=== PATIENT | male | born 1945 | race African-American/Black ===

== ENCOUNTER 2020-03-17 11:00 | Inpatient (IN) | payer OTHER, MEDICAID ==
[~2020-03-17] VITALS: Ht 167.6 cm; Wt 64.0 kg
[~2020-03-17 11:00] MED LIST: FOLI-43 PO; GLIPIZIDE; HYDR-3927 PO; METFORMIN; MULT-1146 PO; THIA100T13 PO
[2020-03-17] MEDS ORDERED: ONDANSETRON HCL 4MG/2ML INJ IV STA (11:16)
[2020-03-17] MEDS ORDERED: SODIUM CHLORIDE 0.9% 1,000 ML IV ONE ×2 (11:16→14:45)
[2020-03-17] MEDS ORDERED: MORPHINE SULFATE 4 MG/ML CPJ (NOT FOR IM USE) IV STA (11:16)
[2020-03-17 11:42] LABS: BASOPHILS % 0.5 % (0.0-2.0); EOSINOPHILS % 2.3 % (0.0-5.0); HEMATOCRIT. 36.4 % (42.0-52.0); HEMOGLOBIN. 12.7 g/dL (14.0-18.0); LYMPHOCYTES % 22.5 % (20.0-50.0); MEAN CORPUSCULAR HEMOGLOBIN 33.9 pg (28.0-32.0); MEAN CORPUSCULAR VOLUME 97.2 fL (80.0-94.0); MEAN PLATELET VOLUME 8.7 fl (7.4-10.4); MONOCYTES % 8.7 % (2.0-8.0); PLATELET 177 x1000/uL (130-400); RED BLOOD CELL COUNT 3.75 mill/uL (4.7-6.1); RED CELL DISTRIBUTION WIDTH 13.7 % (11.6-14.6)
[2020-03-17 11:58] LABS: INR 1.5; PROTHROMBIN TIME 15.4 sec (9.6-11.0)
[2020-03-17 12:07] LABS: CHLORIDE 105 mEq/L (98-107)
[2020-03-17] MEDS ORDERED: OXYCODONE HCL/ACETAMINOPHEN 5/325MG TABLET PO ONE (14:45)
[2020-03-17] MEDS ORDERED: INSULIN REGULAR (HUMULIN R) 300UNITS/3ML SUBCUT ONE (15:15)
[2020-03-17 18:13] VITALS: BP 115/63
[2020-03-17] MEDS ORDERED: MORPHINE SULFATE 2 MG/ML CPJ (NOT FOR IM USE) IV PRN (21:00)
[2020-03-17] MEDS ORDERED: ONDANSETRON HCL 4MG/2ML INJ IV PRN (21:00)
[2020-03-17] MEDS ORDERED: DEXTROSE 50% WATER 50ML SYRINGE IV PRN (21:12)
[2020-03-17] MEDS ORDERED: DEXT 5%/0.45% NACL 1000ML 1,000 ML IV SCH (21:30)
[2020-03-17] MEDS ORDERED: CHLORHEXIDINE GLUCONATE 4% EXTERNAL USE TOP NR (21:30)
[2020-03-17] MEDS: BLOOD SUGAR DIAGNOSTIC STRIP TEST SCH (21:44)
[2020-03-17] MEDS: INSULIN LISPRO 100 UNITS/ML SUBCUT SCH (22:00)
[2020-03-17] MEDS ORDERED: PHYTONADIONE 10MG/ML AMP IM NR (23:00)
[2020-03-17] MEDS ORDERED: ZOLPIDEM TARTRATE 5MG TABLET PO PRN (23:15)
[2020-03-17] MEDS: DEXT 5%/0.9% NACL 1,000 ML IV SCH (23:50)
[2020-03-18] VITALS: BP 115/59
[2020-03-18] MEDS: OXYCODONE HCL/ACETAMINOPHEN 5/325MG TABLET PO PRN ×5 (01:31→20:48)
[2020-03-18 04:00] VITALS: BP 101/56
[2020-03-18] MEDS: BLOOD SUGAR DIAGNOSTIC STRIP TEST SCH ×4 (06:52→20:54)
[2020-03-18 06:59] LABS: INR 1.1; PROTHROMBIN TIME 11.9 sec (9.6-11.0)
[2020-03-18 07:17] LABS: BASOPHILS % 0.4 % (0.0-2.0); EOSINOPHILS % 1.8 % (0.0-5.0); HEMOGLOBIN. 11.6 g/dL (14.0-18.0); LYMPHOCYTES % 26.1 % (20.0-50.0); MEAN CORPUSCULAR HEMOGLOBIN 33.7 pg (28.0-32.0); MEAN PLATELET VOLUME 9.3 fl (7.4-10.4); MONOCYTES % 12.6 % (2.0-8.0); NEUTROPHILS % 59.1 % (40.0-76.0); PLATELET 147 x1000/uL (130-400); RED BLOOD CELL COUNT 3.43 mill/uL (4.7-6.1); RED CELL DISTRIBUTION WIDTH 13.6 % (11.6-14.6)
[2020-03-18 07:44] LABS: CHLORIDE 108 mEq/L (98-107)
[2020-03-18 08:00] VITALS: BP 113/63
[2020-03-18] MEDS: DEXT 5%/0.9% NACL 1,000 ML IV SCH ×2 (08:30→18:18)
[2020-03-18] MEDS: INSULIN LISPRO 100 UNITS/ML SUBCUT SCH ×4 (08:48→21:19)
[2020-03-18] MEDS: LISINOPRIL 2.5MG TABLET PO SCH (11:19)
[2020-03-18 12:00] VITALS: BP 124/73
[2020-03-18 13:10] LABS: HEPATITIS B SURFACE ANTIGEN NEGATIVE
[2020-03-18 13:37] LABS: HEPATITIS A AB IGM NEGATIVE (NEGATIVE)
[2020-03-18 16:00] VITALS: BP 125/67
[2020-03-18] MEDS ORDERED: HYDROMORPHONE HCL/PF 2MG/ML CPJ IM PRN (16:45)
[2020-03-18] MEDS: LIDOCAINE HCL 4% CREAM 76GM TUBE TP SCH (18:47)
[2020-03-18 20:00] VITALS: BP 120/69
[2020-03-18] MEDS: METOPROLOL TARTRATE 25MG TABLET PO SCH (20:47)
[2020-03-18] MEDS ORDERED: CHLORHEXIDINE GLUCONATE 4% EXTERNAL USE TOP NR (21:00)
[2020-03-19] VITALS: BP 114/67
[2020-03-19] MEDS: HYDROMORPHONE HCL/PF 2MG/ML CPJ IV PRN ×3 (00:02→10:45)
[2020-03-19 04:00] VITALS: BP 125/67
[2020-03-19] MEDS: DEXT 5%/0.9% NACL 1,000 ML IV SCH ×2 (04:57→23:38)
[2020-03-19] MEDS: BLOOD SUGAR DIAGNOSTIC STRIP TEST SCH ×4 (06:52→21:11)
[2020-03-19 08:00] VITALS: BP 122/68
[2020-03-19] MEDS: LIDOCAINE HCL 4% CREAM 76GM TUBE TP SCH ×2 (08:43→17:00)
[2020-03-19] MEDS: METOPROLOL TARTRATE 25MG TABLET PO SCH ×2 (08:44→21:03)
[2020-03-19] MEDS: LISINOPRIL 2.5MG TABLET PO SCH (08:44)
[2020-03-19] MEDS: INSULIN LISPRO 100 UNITS/ML SUBCUT SCH ×4 (08:55→21:34)
[2020-03-19] MEDS ORDERED: VANCOMYCIN HCL 1 GM/VIAL ONE (13:30)
[2020-03-19] MEDS ORDERED: MORPHINE SULFATE/PF 1MG/ML 10ML AMP ONE (13:30)
[2020-03-19] MEDS ORDERED: BUPIVACAINE/EPINEPH/PF 0.25%/0.0005 10ML ONE ×2 (13:30→14:59)
[2020-03-19] MEDS ORDERED: BACITRACIN 15GM TUBE TOP ONE (13:30)
[2020-03-19] MEDS ORDERED: BACITRACIN 50,000 UNITS/VIAL ONE (13:31)
[2020-03-19] MEDS ORDERED: PROPOFOL 200MG/20ML VIAL IV ONE ×2 (13:51→14:40)
[2020-03-19] MEDS ORDERED: MIDAZOLAM HCL 2 MG/2 ML VIAL ONE (13:51)
[2020-03-19] MEDS ORDERED: FENTANYL CITRATE/PF 50MCG/ML 2ML VIAL ONE (13:51)
[2020-03-19] MEDS ORDERED: ROPIVACAINE HCL 10MG/ML 20 ML VIAL EPI ONE (13:52)
[2020-03-19] MEDS ORDERED: PHENYLEPHRINE HCL 10 MG/ML 1ML (IV VIAL) IV ONE (14:47)
[2020-03-19] MEDS ORDERED: EPHEDRINE SULFATE 50MG/ML VIAL ONE (15:25)
[2020-03-19] MEDS ORDERED: SKIN ADHESIVE 0.7 GM EA TOP ONE (15:27)
[2020-03-19] MEDS ORDERED: SODIUM CHLORIDE 0.9% 1,000 ML IV ONE (15:59)
[2020-03-19] MEDS ORDERED: HYDROMORPHONE HCL/PF 2MG/ML CPJ IV PRN (16:00)
[2020-03-19] MEDS ORDERED: MEPERIDINE HCL/PF 25MG/ML CPJ IV PRN (16:00)
[2020-03-19] MEDS ORDERED: ONDANSETRON HCL 4MG/2ML INJ IV PRN ×2 (16:00→16:30)
[2020-03-19] MEDS ORDERED: MORPHINE SULFATE 2 MG/ML CPJ (NOT FOR IM USE) IV PRN (16:00)
[2020-03-19] MEDS ORDERED: DIPHENHYDRAMINE INJ IV PRN (16:30)
[2020-03-19] MEDS ORDERED: HYDROCODONE/ACETAMINOPHEN 10/325MG TABLET PO PRN ×2 (16:30)
[2020-03-19] MEDS ORDERED: NALOXONE INJ IV PRN (16:30)
[2020-03-19] MEDS ORDERED: ACETAMINOPHEN 325MG TABLET PO PRN (16:30)
[2020-03-19] MEDS ORDERED: ONDANSETRON INJ IV PRN (16:30)
[2020-03-19] MEDS ORDERED: HYDROMORPHONE PCA 10MG/50ML IV PRN (16:30)
[2020-03-19] MEDS ORDERED: MAGNESIUM HYDROXIDE 400MG/5ML 30ML UDC PO PRN (16:30)
[2020-03-19] MEDS: DOCUSATE SODIUM 100MG CAPSULE PO SCH (19:01)
[2020-03-19 20:00] VITALS: BP 139/76
[2020-03-19] MEDS: CEFAZOLIN 2,000 MG in DEXT 5% WATER 100 ML IV SCH (23:11)
[2020-03-20] VITALS: BP 119/69
[2020-03-20 04:00] VITALS: BP 126/69
[2020-03-20] MEDS: CEFAZOLIN 2,000 MG in DEXT 5% WATER 100 ML IV SCH (06:00)
[2020-03-20 06:56] LABS: BASOPHILS % 0.2 % (0.0-2.0); EOSINOPHILS % 0.3 % (0.0-5.0); HEMATOCRIT. 29.3 % (42.0-52.0); HEMOGLOBIN. 10.2 g/dL (14.0-18.0); MEAN CORPUSCULAR HEMOGLOBIN 33.5 pg (28.0-32.0); MEAN CORPUSCULAR VOLUME 95.8 fL (80.0-94.0); MEAN PLATELET VOLUME 9.5 fl (7.4-10.4); MONOCYTES % 14.3 % (2.0-8.0); NEUTROPHILS % 76.2 % (40.0-76.0); PLATELET 137 x1000/uL (130-400); RED BLOOD CELL COUNT 3.05 mill/uL (4.7-6.1); RED CELL DISTRIBUTION WIDTH 13.5 % (11.6-14.6)
[2020-03-20 07:06] LABS: CHLORIDE 106 mEq/L (98-107)
[2020-03-20] MEDS: BLOOD SUGAR DIAGNOSTIC STRIP TEST SCH ×4 (07:20→20:52)
[2020-03-20 08:00] VITALS: BP 116/66
[2020-03-20] MEDS: METOPROLOL TARTRATE 25MG TABLET PO SCH ×2 (09:09→20:41)
[2020-03-20] MEDS: LISINOPRIL 2.5MG TABLET PO SCH (09:09)
[2020-03-20] MEDS: DOCUSATE SODIUM 100MG CAPSULE PO SCH ×2 (09:10→17:45)
[2020-03-20] MEDS: INSULIN LISPRO 100 UNITS/ML SUBCUT SCH ×4 (09:19→21:34)
[2020-03-20] MEDS: LIDOCAINE HCL 4% CREAM 76GM TUBE TP SCH ×2 (10:20→17:45)
[2020-03-20 12:00] VITALS: BP 93/57
[2020-03-20 16:00] VITALS: BP 104/62
[2020-03-20] MEDS: DEXT 5%/0.9% NACL 1,000 ML IV SCH (17:46)
[2020-03-20 20:00] VITALS: BP 110/63
[2020-03-20] MEDS: MELOXICAM 7.5MG TABLET PO SCH (20:02)
[2020-03-20] MEDS ORDERED: TAMSULOSIN HCL 0.4MG SR CAPSULE PO NR (23:30)
[2020-03-21] VITALS: BP 106/58
[2020-03-21 04:00] VITALS: BP 110/58
[2020-03-21] MEDS: BLOOD SUGAR DIAGNOSTIC STRIP TEST SCH ×4 (06:29→21:51)
[2020-03-21 08:00] VITALS: BP 107/62
[2020-03-21] MEDS: LISINOPRIL 2.5MG TABLET PO SCH (09:00)
[2020-03-21] MEDS: INSULIN LISPRO 100 UNITS/ML SUBCUT SCH ×4 (09:43→21:36)
[2020-03-21] MEDS: DOCUSATE SODIUM 100MG CAPSULE PO SCH ×2 (10:27→18:29)
[2020-03-21] MEDS: METOPROLOL TARTRATE 25MG TABLET PO SCH ×2 (10:28→21:26)
[2020-03-21] MEDS: MELOXICAM 7.5MG TABLET PO SCH (10:29)
[2020-03-21] MEDS: TAMSULOSIN HCL 0.4MG SR CAPSULE PO SCH (10:29)
[2020-03-21] MEDS: LIDOCAINE HCL 4% CREAM 76GM TUBE TP SCH ×2 (10:32→18:34)
[2020-03-21] MEDS: COLCHICINE 0.6MG TABLET PO SCH (10:35)
[2020-03-21 16:00] VITALS: BP 102/53
[2020-03-21] MEDS ORDERED: RIVAROXABAN 10 MG TABLET PO SCH (17:00)
[2020-03-21 20:00] VITALS: BP 116/64
[2020-03-22] VITALS: BP 131/90
[2020-03-22 04:00] VITALS: BP 125/65
[2020-03-22] MEDS: BLOOD SUGAR DIAGNOSTIC STRIP TEST SCH ×3 (06:41→17:43)
[2020-03-22] MEDS: INSULIN LISPRO 100 UNITS/ML SUBCUT SCH ×3 (07:50→18:12)
[2020-03-22 08:00] VITALS: BP 123/65
[2020-03-22] MEDS: DOCUSATE SODIUM 100MG CAPSULE PO SCH ×2 (08:45→17:00)
[2020-03-22] MEDS: COLCHICINE 0.6MG TABLET PO SCH (08:45)
[2020-03-22] MEDS: TAMSULOSIN HCL 0.4MG SR CAPSULE PO SCH (08:45)
[2020-03-22] MEDS: MELOXICAM 7.5MG TABLET PO SCH (08:46)
[2020-03-22] MEDS: LISINOPRIL 2.5MG TABLET PO SCH (08:46)
[2020-03-22] MEDS: METOPROLOL TARTRATE 25MG TABLET PO SCH (08:46)
[2020-03-22] MEDS: LIDOCAINE HCL 4% CREAM 76GM TUBE TP SCH ×2 (08:47→17:00)
[2020-03-22 12:00] VITALS: BP 111/48
[2020-03-22 16:00] VITALS: BP 93/58
[2020-03-22] MEDS ORDERED: LACTULOSE 20G/30ML UDC PO SCH (16:00)
== END 2020-03-22 20:03 | DRG 481 ==
LOC: ER 11:00 → 6EST 15:47 → ENRESERV 16:57
PROVIDERS: ADMIT Internal Medicine; ATTEND Internal Medicine
PROC: 0QS606Z Reposition Right Upper Femur with Intramedullary Internal Fixation Device, Open Approach (ICD-10-PCS; principal; 2020-03-19)
PROC: 0S9C3ZZ Drainage of Right Knee Joint, Percutaneous Approach (ICD-10-PCS; 2020-03-19)
DX: S72.141A Displaced intertrochanteric fracture of right femur, initial encounter for closed fracture (principal); E87.1 Hypo-osmolality and hyponatremia; E11.65 Type 2 diabetes mellitus with hyperglycemia; D53.9 Nutritional anemia, unspecified; Z68.22 Body mass index [BMI] 22.0-22.9, adult; I10 Essential (primary) hypertension; I25.10 Atherosclerotic heart disease of native coronary artery without angina pectoris; F03.90 Unspecified dementia, unspecified severity, without behavioral disturbance, psychotic disturbance, mood disturbance, and anxiety; G89.4 Chronic pain syndrome; I70.0 Atherosclerosis of aorta; M10.9 Gout, unspecified; F10.20 Alcohol dependence, uncomplicated; N40.0 Benign prostatic hyperplasia without lower urinary tract symptoms; I08.1 Rheumatic disorders of both mitral and tricuspid valves; Z96.652 Presence of left artificial knee joint; M17.11 Unilateral primary osteoarthritis, right knee; V18.4XXA Pedal cycle driver injured in noncollision transport accident in traffic accident, initial encounter; Y93.55 Activity, bike riding; Z82.49 Family history of ischemic heart disease and other diseases of the circulatory system; Z87.891 Personal history of nicotine dependence; Z95.1 Presence of aortocoronary bypass graft; Z79.899 Other long term (current) drug therapy; Z71.41 Alcohol abuse counseling and surveillance of alcoholic; Z79.84 Long term (current) use of oral hypoglycemic drugs; Z03.818 Encounter for observation for suspected exposure to other biological agents ruled out
CPT/HCPCS: 36415; 71045; 73502; 73503; 73560; 76000; 80048; 80053; 82962; 83036; 84484; 84550; 85025; 86705; 86709; 86803; 86850; 86900; 87340; 89060; 93005; 93306; 97116; 97162; 97166; 97530; 97535; 99285; C1713; J0171; J0690; J1170; J1815; J2250; J2270; J2274; J2370; J2405; J2704; J2795; J3010; J3370; J3490; J7030; J7042; J7060; U0003-CS

== ENCOUNTER 2021-10-14 12:38 | Emergency (ER) | payer MEDICARE, MEDICAID ==
[~2021-10-14] VITALS: Ht 182.9 cm; Wt 78.0 kg
[2021-10-14 15:05] LABS: BASOPHILS % 0.9 % (0.0-2.0); EOSINOPHILS % 4.4 % (0.0-5.0); HEMATOCRIT. 34.5 % (42.0-52.0); HEMOGLOBIN. 11.3 g/dL (14.0-18.0); LYMPHOCYTES % 24.9 % (20.0-50.0); MEAN CORPUSCULAR HEMOGLOBIN 30.9 pg (28.0-32.0); MEAN CORPUSCULAR VOLUME 94.3 fL (80.0-94.0); MONOCYTES % 14.2 % (2.0-8.0); NEUTROPHILS % 55.6 % (40.0-76.0); PLATELET 352 x1000/uL (130-400); RED BLOOD CELL COUNT 3.66 mill/uL (4.7-6.1); RED CELL DISTRIBUTION WIDTH 15.3 % (11.6-14.6)
[2021-10-14 15:20] LABS: CHLORIDE 103 mEq/L (98-107)
[2021-10-14] MEDS ORDERED: AZIT250T12 MT (16:59)
[2021-10-14 17:34] VITALS: BP 120/80
== END 2021-10-14 17:37 | disposition home or self-care (01) ==
LOC: ER 12:45
DX: R06.09 Other forms of dyspnea (principal); Z20.822 Contact with and (suspected) exposure to COVID-19; Z95.1 Presence of aortocoronary bypass graft
CPT/HCPCS: 36415; 71045; 80053; 83880; 84484; 85025; 85379; 87426; 93005; 99285

== ENCOUNTER 2022-01-18 15:55 | Emergency (ER) | payer MEDICARE, MEDICAID ==
[~2022-01-18] VITALS: Ht 172.7 cm; Wt 80.0 kg
[~2022-01-18 15:55] MED LIST changes: +AZIT250T12 MT
[2022-01-18] MEDS ORDERED: ASPIRIN 325MG EC TABLET PO ONE (17:45)
[2022-01-18] MEDS ORDERED: GABAPENTIN 300MG CAPSULE PO ONE (18:00)
[2022-01-18] MEDS ORDERED: MORPHINE SULFATE 4 MG/ML CPJ (NOT FOR IM USE) IV ONE (18:00)
[2022-01-18 18:02] LABS: BASOPHILS % 0.8 % (0.0-2.0); EOSINOPHILS % 4.5 % (0.0-5.0); HEMATOCRIT. 37.4 % (42.0-52.0); HEMOGLOBIN. 12.7 g/dL (14.0-18.0); LYMPHOCYTES % 27.7 % (20.0-50.0); MEAN CORPUSCULAR HEMOGLOBIN 32.4 pg (28.0-32.0); MEAN CORPUSCULAR VOLUME 95.3 fL (80.0-94.0); MEAN PLATELET VOLUME 8.3 fl (7.4-10.4); MONOCYTES % 12.3 % (2.0-8.0); NEUTROPHILS % 54.7 % (40.0-76.0); PLATELET 231 x1000/uL (130-400); RED BLOOD CELL COUNT 3.92 mill/uL (4.7-6.1); RED CELL DISTRIBUTION WIDTH 13.8 % (11.6-14.6)
[2022-01-18 18:07] LABS: CHLORIDE 107 mEq/L (98-107)
[2022-01-18 18:28] LABS: PHOSPHORUS 2.3 mg/dL (2.5-4.9)
[2022-01-18] MEDS ORDERED: LANC-493 TP (19:05)
[2022-01-18] MEDS ORDERED: BLOO-1065 HHN (19:05)
[2022-01-18] MEDS ORDERED: FLAS1EAC2 TP (19:05)
[2022-01-18] MEDS ORDERED: ASPIRIN 325MG EC TABLET PO NR (19:10)
[2022-01-19 02:12] VITALS: BP 140/64
== END 2022-01-18 19:24 | disposition home or self-care (01) ==
LOC: ER 15:55
DX: E11.42 Type 2 diabetes mellitus with diabetic polyneuropathy (principal); I10 Essential (primary) hypertension; Z98.890 Other specified postprocedural states; Z79.899 Other long term (current) drug therapy
CPT/HCPCS: 36415; 71045; 80053; 83735; 83880; 84100; 84484; 85025; 93005; 96374; 99285; J2270

== ENCOUNTER 2023-12-26 14:42 | Emergency (ER) | payer MEDICARE, MEDICAID ==
[~2023-12-26] VITALS: Ht 175.3 cm; Wt 73.0 kg
[~2023-12-26 14:42] MED LIST changes: +ACET325T52 PO; +AMI2 PO; +ASPI-1406 PO; +ATOR40TA70 PO; -AZIT250T12 MT; +DIPH25CA83 PO; +FAMO20TA8 PO; +FURO40TA5 PO; +GABA-532 MT; -GLIPIZIDE; +IBUP-2029 PO; +INSNOV SQ; +INSU100I24 SUBCUT; +ISOS30TA91 PO; +METF-416 MT; -METFORMIN; +NITR0.4T49 SL; +POTA-354 PO; +RIVA20TA PO; +TAMS-11 PO
[2023-12-26 14:44] VITALS: BP 134/68; RESP 14; TEMP 98.7; O2SAT 99
[2023-12-26 16:24] LABS: BASOPHILS % 0.9 % (0.0-2.0); EOSINOPHILS % 1.5 % (0.0-5.0); HEMATOCRIT. 37.5 % (42.0-52.0); HEMOGLOBIN. 12.7 g/dL (14.0-18.0); LYMPHOCYTES % 17.2 % (20.0-50.0); MEAN CORPUSCULAR HEMOGLOBIN 32.9 pg (28.0-32.0); MEAN CORPUSCULAR HGB CONC 33.9 g/dL (31.0-37.0); MEAN CORPUSCULAR VOLUME 97.1 fL (80.0-94.0); MEAN PLATELET VOLUME 8.3 fl (7.4-10.4); MONOCYTES % 13.8 % (2.0-8.0); NEUTROPHILS % 66.6 % (40.0-76.0); PLATELET 232 x1000/uL (130-400); RED BLOOD CELL COUNT 3.87 mill/uL (4.7-6.1); RED CELL DISTRIBUTION WIDTH 15.7 % (11.6-14.6); WHITE BLOOD COUNT 6.1 x1000/uL (4.5-11.0)
[2023-12-26 16:29] LABS: CHLORIDE 106 mEq/L (98-107); POTASSIUM 4.5 mEq/L (3.5-5.1); SODIUM 138 mEq/L (136-145)
[2023-12-26 16:30] LABS: CALCIUM 9.4 mg/dL (8.7-10.4); CARBON DIOXIDE 26 mEq/L (21-32)
[2023-12-26 16:35] LABS: GLUCOSE 108 mg/dL (70-105); UREA NITROGEN BLOOD 10 mg/dL (9-23)
[2023-12-26 16:36] LABS: TROPONIN I HIGH SENSITIVITY 7 ng/L (3.0-53)
[2023-12-26 16:37] LABS: ALANINE AMINOTRANSFERASE 11 IU/L (10-49); ALBUMIN 4.3 g/dL (3.2-4.8); ASPARTATE AMINOTRANSFERASE 17 IU/L (<34); BILIRUBIN TOTAL 1.2 mg/dL (0.1-1.0); PROTEIN TOTAL 7.9 g/dL (6.0-8.3)
[2023-12-26] MEDS: ONDANSETRON 4MG ODT PO ONE (17:15)
[2023-12-26 18:00] VITALS: PULSE 17
== END 2023-12-26 18:48 | disposition home or self-care (01) ==
LOC: ER 14:42
DX: J06.9 Acute upper respiratory infection, unspecified (principal); I48.91 Unspecified atrial fibrillation; E11.9 Type 2 diabetes mellitus without complications; I10 Essential (primary) hypertension; Z98.890 Other specified postprocedural states; Z79.899 Other long term (current) drug therapy
CPT/HCPCS: 36415; 71045; 80053; 84484; 85025; 93005; 99285

== ENCOUNTER 2025-01-04 23:56 | Emergency (ER) | payer BC, MEDICAID ==
[~2025-01-04] VITALS: Ht 172.7 cm; Wt 70.0 kg
[~2025-01-04 23:56] MED LIST changes: +ACET-3800 PO; -ACET325T52 PO; +GABA-1180 MT; -GABA-532 MT; -TAMS-11 PO; +TAMS-54 PO
[2025-01-04 23:58] VITALS: TEMP 37.2; O2SAT 98
[2025-01-05] MEDS: IBUPROFEN 600MG TABLET PO STA (00:17)
[2025-01-05 01:40] LABS: CHLORIDE 102 mEq/L (98-107); POTASSIUM 4.7 mEq/L (3.5-5.1); SODIUM 134 mEq/L (136-145)
[2025-01-05 01:41] LABS: CARBON DIOXIDE 25 mEq/L (21-32)
[2025-01-05 01:42] LABS: CALCIUM 9.3 mg/dL (8.7-10.4)
[2025-01-05 01:46] LABS: UREA NITROGEN BLOOD 18 mg/dL (9-23)
[2025-01-05 01:47] LABS: BASOPHILS % 1.1 % (0.0-2.0); EOSINOPHILS % 2.5 % (0.0-5.0); HEMATOCRIT. 37.9 % (42.0-52.0); HEMOGLOBIN. 12.7 g/dL (14.0-18.0); LYMPHOCYTES % 34.6 % (20.0-50.0); MEAN CORPUSCULAR HEMOGLOBIN 32.3 pg (28.0-32.0); MEAN CORPUSCULAR HGB CONC 33.4 g/dL (31.0-37.0); MEAN CORPUSCULAR VOLUME 96.7 fL (80.0-94.0); MEAN PLATELET VOLUME 9.3 fl (7.4-10.4); NEUTROPHILS % 49.8 % (40.0-76.0); PLATELET 202 x1000/uL (130-400); RED BLOOD CELL COUNT 3.92 mill/uL (4.7-6.1); RED CELL DISTRIBUTION WIDTH 14.8 % (11.6-14.6); WHITE BLOOD COUNT 4.5 x1000/uL (4.5-11.0)
[2025-01-05 02:05] LABS: GLUCOSE 424 mg/dL (70-105)
[2025-01-05 02:35] LABS: CREATININE 1.1 mg/dL (0.6-1.3)
[2025-01-05] MEDS ORDERED: IBUP-2029 MT (04:42)
[2025-01-05 04:44] VITALS: BP 117/62; PULSE 65; RESP 18
[2025-01-05] MEDS: MORPHINE SULFATE 4 MG/ML INJ (FOR IV/IM USE) IV ONE (04:44)
[2025-01-05] MEDS: ONDANSETRON HCL 4MG/2ML INJ IV ONE (04:44)
[2025-01-05] MEDS ORDERED: IOHEXOL-300 100 ML BOTTLE ONE (07:04)
== END 2025-01-05 06:45 | disposition home or self-care (01) ==
LOC: ER 23:56
DX: S80.01XA Contusion of right knee, initial encounter (principal); S39.91XA Unspecified injury of abdomen, initial encounter; R51.9 Headache, unspecified; I11.0 Hypertensive heart disease with heart failure; I50.9 Heart failure, unspecified; I48.91 Unspecified atrial fibrillation; E11.9 Type 2 diabetes mellitus without complications; Z79.899 Other long term (current) drug therapy; Z79.4 Long term (current) use of insulin; Z79.82 Long term (current) use of aspirin; V23.49XA Other motorcycle driver injured in collision with car, pick-up truck or van in traffic accident, initial encounter; Y93.89 Activity, other specified; Y92.89 Other specified places as the place of occurrence of the external cause; Y99.8 Other external cause status
CPT/HCPCS: 99291; 70450; 96374; 71045; 96375; 80048; 85025; 36415; 72170; 73560; 74177; Q9967; J2405; J2270

== ENCOUNTER 2025-03-11 16:57 | Emergency (ER) | payer MEDICARE, MEDICAID ==
[~2025-03-11] VITALS: Ht 167.6 cm; Wt 73.0 kg
[~2025-03-11 16:57] MED LIST changes: +IBUP-2029 MT
[2025-03-11 17:00] VITALS: O2SAT 98
[2025-03-11] MEDS: IBUPROFEN 400MG TABLET PO ONE (18:12)
[2025-03-11] MEDS: GABAPENTIN 300MG CAPSULE PO ONE (18:13)
[2025-03-11 18:15] LABS: *AMPHETAMINES SCREEN URINE NEGATIVE (NEGATIVE); *BARBITURATES SCREEN URINE NEGATIVE (NEGATIVE); *BENZODIAZEPINES SCREEN URINE NEGATIVE (NEGATIVE); *COCAINE SCREEN URINE PRESUMPTIVE POSITIVE (NEGATIVE); CANNABINOID URINE SCREEN NEGATIVE (NEGATIVE); CLARITY URINE CLEAR (CLEAR); COLOR URINE YELLOW (YELLOW); ECSTASY MDMA SCREEN URINE NEGATIVE (NEGATIVE); GLUCOSE URINE NEGATIVE (NEGATIVE); KETONES URINE NEGATIVE (NEGATIVE); LEUKOCYTE ESTERASE URINE NEGATIVE (NEGATIVE); METHADONE URINE SCREEN NEGATIVE (NEGATIVE); NITRITE URINE NEGATIVE (NEGATIVE); OCCULT BLOOD URINE NEGATIVE (NEGATIVE); OPIATES URINE SCREEN NEGATIVE (NEGATIVE); PH URINE 6.0 (4.5-8.0); PHENCYCLIDINE URINE SCREEN NEGATIVE (NEGATIVE); PROTEIN URINE NEGATIVE (NEGATIVE); SPECIFIC GRAVITY URINE 1.005 (1.005-1.030); UROBILINOGEN URINE 1.0 E.U./dL (0.2-1.0)
[2025-03-11 19:30] VITALS: BP 110/64; PULSE 71; RESP 18; TEMP 37.1; O2SAT 98
== END 2025-03-11 21:32 | disposition home or self-care (01) ==
LOC: ER 16:57
DX: F10.129 Alcohol abuse with intoxication, unspecified (principal); E11.42 Type 2 diabetes mellitus with diabetic polyneuropathy; F17.200 Nicotine dependence, unspecified, uncomplicated; I11.0 Hypertensive heart disease with heart failure; I25.10 Atherosclerotic heart disease of native coronary artery without angina pectoris; I48.91 Unspecified atrial fibrillation; I50.9 Heart failure, unspecified; Y90.9 Presence of alcohol in blood, level not specified; Z79.01 Long term (current) use of anticoagulants; Z79.4 Long term (current) use of insulin; Z79.82 Long term (current) use of aspirin; Z79.84 Long term (current) use of oral hypoglycemic drugs; Z79.899 Other long term (current) drug therapy; Z95.1 Presence of aortocoronary bypass graft; Z98.890 Other specified postprocedural states
CPT/HCPCS: 71045; 80305; 81003; 93005; 99285

== ENCOUNTER 2025-03-30 18:13 | Emergency (ER) | payer MEDICARE, MEDICAID ==
[~2025-03-30] VITALS: Ht 172.7 cm; Wt 82.0 kg
[2025-03-30 18:18] VITALS: O2SAT 96
[2025-03-30] MEDS: SODIUM CHLORIDE 0.9% 1,000 ML IV ONE (19:02)
[2025-03-30 19:07] LABS: CREATININE 1.3 mg/dL (0.6-1.3); UREA NITROGEN BLOOD 18 mg/dL (9-23)
[2025-03-30 19:09] LABS: PHOSPHORUS 3.1 mg/dL (2.5-4.9)
[2025-03-30] MEDS: BLOOD SUGAR DIAGNOSTIC STRIP TEST SCH (19:13)
[2025-03-30 19:52] LABS: HEMATOCRIT. 36.3 % (42.0-52.0); HEMOGLOBIN. 12.1 g/dL (14.0-18.0); MEAN PLATELET VOLUME 9.3 fl (7.4-10.4); PLATELET 228 x1000/uL (130-400); RED BLOOD CELL COUNT 3.73 mill/uL (4.7-6.1); RED CELL DISTRIBUTION WIDTH 14.9 % (11.6-14.6)
[2025-03-30 20:53] LABS: CLARITY URINE CLEAR (CLEAR); GLUCOSE URINE 3+ (NEGATIVE); KETONES URINE NEGATIVE (NEGATIVE); LEUKOCYTE ESTERASE URINE NEGATIVE (NEGATIVE); NITRITE URINE NEGATIVE (NEGATIVE); OCCULT BLOOD URINE NEGATIVE (NEGATIVE); PH URINE 5.5 (4.5-8.0); PROTEIN URINE NEGATIVE (NEGATIVE); SPECIFIC GRAVITY URINE 1.027 (1.005-1.030); UROBILINOGEN URINE 0.2 E.U./dL (0.2-1.0)
[2025-03-30 21:19] LABS: BACTERIA URINE NONE SEEN; COLOR URINE STRAW (YELLOW); RBC URINE NONE SEEN /hpf (0-2); SQUAMOUS EPITHELIAL CELL URINE RARE /lpf (RARE/1+); WBC URINE NONE SEEN /hpf (0-2)
[2025-03-30 21:28] LABS: TROPONIN I HIGH SENSITIVITY 5 ng/L (3.0-53)
[2025-03-30] MEDS: ACETAMINOPHEN 500MG TABLET PO NR (21:28)
[2025-03-30] MEDS: INSULIN REGULAR (HUMULIN R) 1000UNITS/10ML VIAL SUBCUT NR (21:30)
[2025-03-30 21:40] LABS: EOSINOPHILS % MANUAL 2.0 % (0.0-5.0); LYMPHOCYTES % MANUAL 35.0 % (20.0-50.0); MONOCYTES % MANUAL 17.0 % (2.0-8.0); NEUTROPHILS % MANUAL 46.0 % (45.0-75.0); PLATELET ESTIMATE NORMAL
[2025-03-30 21:53] VITALS: BP 135/88; PULSE 85; RESP 14; TEMP 36.6; O2SAT 96
[2025-03-30] MEDS ORDERED: INSU100I24 SUBCUT (22:01)
[2025-03-30] MEDS ORDERED: INSNOV SQ (22:01)
[2025-03-30] MEDS ORDERED: BLOO-1747 MC (22:07)
== END 2025-03-30 22:30 | disposition home or self-care (01) ==
LOC: ER 18:13
DX: E11.65 Type 2 diabetes mellitus with hyperglycemia (principal); I11.0 Hypertensive heart disease with heart failure; I50.9 Heart failure, unspecified; I48.91 Unspecified atrial fibrillation; Z79.899 Other long term (current) drug therapy; Z79.82 Long term (current) use of aspirin; Z95.1 Presence of aortocoronary bypass graft
CPT/HCPCS: 99285; 96360; 71045; 96361; 80048; 81003; 82010; 82550; 82962; 83735; 83930; 84100; 85025; 84484; 93005; 36415; J7030; J1815; A4606